=== PATIENT | female | born 1995 | race Caucasian/White ===

== ENCOUNTER 2018-06-22 10:43 | Emergency (ER) | payer OTHER ==
[~2018-06-22] VITALS: Ht 157.5 cm; Wt 61.2 kg
[2018-06-22] MEDS ORDERED: PHENAZOPYRIDINE HCL 100 MG TABLET PO ONE (11:00)
[2018-06-22] MEDS ORDERED: PHENAZOPYRIDINE HCL 100 MG TABLET ONE (11:03)
[2018-06-22 11:15] LABS: *BILIRUBIN,URIN NEGATIVE (NEGATIVE); *BLOOD, URINE 3+ (NEGATIVE); *CLARITY,URINE CLOUDY (CLEAR); *COLOR,URINE YELLOW (YELLOW); *KETONES,URINE NEGATIVE (NEGATIVE); *PROTEIN,URINE 2+ (NEGATIVE); *UROBILINOGEN,URINE 0.2 E.U./dl (NORMAL); LEUKOCYTE ESTERASE ,URINE 2+ (NEGATIVE); NITRITE, URINE NEGATIVE (NEGATIVE); PH,URINE 6.5 (5.0-8.0); UGLUCOSE NEGATIVE (NEGATIVE)
[2018-06-22 11:16] LABS: *URINE HCG, QUAL NEGATIVE (NEGATIVE)
[2018-06-22 11:18] LABS: BACTERIA,URINE FEW /HPF (NONE SEEN); SQUAMOUS EPITHELIAL CELL,UR FEW /HPF (NONE SEEN); WBC,URINE TNTC /HPF (0-3)
--- NOTE | 2018-06-22 11:29 | NUR ---
Patient discharged to home in stable conditon. Written and verbal after care instructions given. Patient verbalizes understanding of instructions. rx x! given
[2018-06-22 11:30] VITALS: BP 108/66
== END 2018-06-22 11:25 | disposition home or self-care (01) ==
LOC: ER 10:43
DX: N39.0 Urinary tract infection, site not specified (principal); J45.909 Unspecified asthma, uncomplicated; F17.200 Nicotine dependence, unspecified, uncomplicated
CPT/HCPCS: 81001; 84703; 87086; 99284; A4663

== ENCOUNTER 2018-07-03 09:19 | Emergency (ER) | payer OTHER ==
[~2018-07-03] VITALS: Ht 165.1 cm; Wt 59.0 kg
--- NOTE | 2018-07-03 09:20 | NUR ---
PATIENT BROUGHT IN THE ROOM. COLLECTED URINE. PATIENT C/O OF PAINFUL URINATION ALREADY TOOK TREATMENT WITH NO CHANGES.
--- NOTE | 2018-07-03 09:35 | NUR ---
OBTAIN URINE SPECIMEN AND TAKEN TO LAB
[2018-07-03 09:56] LABS: *BILIRUBIN,URIN NEGATIVE (NEGATIVE); *BLOOD, URINE NEGATIVE (NEGATIVE); *CLARITY,URINE CLEAR (CLEAR); *COLOR,URINE YELLOW (YELLOW); *KETONES,URINE NEGATIVE (NEGATIVE); *PROTEIN,URINE NEGATIVE (NEGATIVE); *UROBILINOGEN,URINE 0.2 E.U./dl (NORMAL); LEUKOCYTE ESTERASE ,URINE TRACE (NEGATIVE); NITRITE, URINE NEGATIVE (NEGATIVE); UGLUCOSE NEGATIVE (NEGATIVE)
[2018-07-03 09:58] LABS: BACTERIA,URINE FEW /HPF (NONE SEEN); SQUAMOUS EPITHELIAL CELL,UR MODERATE /HPF (NONE SEEN)
--- NOTE | 2018-07-03 10:25 | NUR ---
DR GAMBINO IN THE ROOM TO SEE PATIENT.
--- NOTE | 2018-07-03 10:38 | NUR ---
GIVEN PATIENT PRESCRIPTIONS AND DISCHARGE PAPERWORK.
== END 2018-07-03 10:41 | disposition home or self-care (01) ==
LOC: ER 09:19
DX: N39.0 Urinary tract infection, site not specified (principal); J45.909 Unspecified asthma, uncomplicated; F17.200 Nicotine dependence, unspecified, uncomplicated
CPT/HCPCS: 87077; 87086; A4663

== ENCOUNTER 2018-07-08 17:40 | Emergency (ER) | payer OTHER ==
[~2018-07-08] VITALS: Ht 165.1 cm; Wt 59.0 kg
[2018-07-08 18:11] LABS: *BILIRUBIN,URIN NEGATIVE (NEGATIVE); *BLOOD, URINE 3+ (NEGATIVE); *CLARITY,URINE CLOUDY (CLEAR); *COLOR,URINE YELLOW (YELLOW); *KETONES,URINE NEGATIVE (NEGATIVE); *PROTEIN,URINE 3+ (NEGATIVE); *URINE HCG, QUAL NEGATIVE (NEGATIVE); *UROBILINOGEN,URINE 0.2 E.U./dl (NORMAL); LEUKOCYTE ESTERASE ,URINE 2+ (NEGATIVE); NITRITE, URINE NEGATIVE (NEGATIVE); UGLUCOSE NEGATIVE (NEGATIVE)
[2018-07-08 18:39] LABS: RBC,URINE TNTC /HPF (0-3)
[2018-07-08 18:40] LABS: BACTERIA,URINE MODERATE /HPF (NONE SEEN); SQUAMOUS EPITHELIAL CELL,UR FEW /HPF (NONE SEEN); WBC,URINE TNTC /HPF (0-3)
[2018-07-08] MEDS ORDERED: PHENAZOPYRIDINE HCL 100 MG TABLET PO ONE (19:00)
[2018-07-08] MEDS ORDERED: CIPROFLOXACIN HCL 250 MG TABLET PO ONE (19:00)
[2018-07-08] MEDS ORDERED: PHENAZOPYRIDINE HCL 100 MG TABLET ONE (19:12)
[2018-07-08] MEDS ORDERED: CIPROFLOXACIN HCL 250 MG TABLET ONE (19:12)
[2018-07-08 19:20] VITALS: BP 111/77
--- NOTE | 2018-07-08 19:20 | NUR ---
Patient discharged to home in stable conditon. Written and verbal after care instructions given. Patient verbalizes understanding of instructions.
== END 2018-07-08 19:21 | disposition home or self-care (01) ==
LOC: ER 17:41
DX: N39.0 Urinary tract infection, site not specified (principal); J45.909 Unspecified asthma, uncomplicated; F17.200 Nicotine dependence, unspecified, uncomplicated
CPT/HCPCS: 84703; 87077; 87086; A4663

== ENCOUNTER 2018-08-11 16:43 | Emergency (ER) | payer OTHER ==
[~2018-08-11] VITALS: Ht 157.5 cm; Wt 47.6 kg
[2018-08-11 17:35] LABS: *BILIRUBIN,URIN NEGATIVE (NEGATIVE); *BLOOD, URINE 3+ (NEGATIVE); *CLARITY,URINE CLOUDY (CLEAR); *COLOR,URINE YELLOW (YELLOW); *KETONES,URINE NEGATIVE (NEGATIVE); *PROTEIN,URINE 2+ (NEGATIVE); *UROBILINOGEN,URINE 0.2 E.U./dl (NORMAL); LEUKOCYTE ESTERASE ,URINE 2+ (NEGATIVE); NITRITE, URINE NEGATIVE (NEGATIVE); PH,URINE 6.5 (5.0-8.0); UGLUCOSE NEGATIVE (NEGATIVE)
[2018-08-11 17:36] LABS: *URINE HCG, QUAL NEGATIVE (NEGATIVE)
[2018-08-11 17:48] LABS: BACTERIA,URINE MODERATE /HPF (NONE SEEN); RBC,URINE 80-100 /HPF (0-3); SQUAMOUS EPITHELIAL CELL,UR MODERATE /HPF (NONE SEEN); WBC,URINE TNTC /HPF (0-3)
[2018-08-11] MEDS ORDERED: PHENAZOPYRIDINE HCL 100 MG TABLET ONE (17:59)
[2018-08-11] MEDS ORDERED: CEPHALEXIN MONOHYDRATE 500 MG CAPSULE ONE (17:59)
[2018-08-11] MEDS ORDERED: PHENAZOPYRIDINE HCL 100 MG TABLET PO ONE (18:00)
[2018-08-11] MEDS ORDERED: CEPHALEXIN MONOHYDRATE 500 MG CAPSULE PO ONE (18:00)
[2018-08-11] MEDS ORDERED: CIPROFLOXACIN HCL 250 MG TABLET ONE (18:03)
--- NOTE | 2018-08-11 18:12 | NUR ---
Patient discharged to home in stable conditon. Written and verbal after care instructions given. Patient verbalizes understanding of instructions.
[2018-08-11 18:13] VITALS: BP 109/72
[2018-08-11] MEDS ORDERED: CIPROFLOXACIN HCL 250 MG TABLET PO ONE (18:15)
== END 2018-08-11 18:15 | disposition home or self-care (01) ==
LOC: ER 16:45
DX: N39.0 Urinary tract infection, site not specified (principal); J45.909 Unspecified asthma, uncomplicated; F17.200 Nicotine dependence, unspecified, uncomplicated
CPT/HCPCS: 84703; 87086; A4663

== ENCOUNTER 2018-11-30 14:20 | Emergency (ER) | payer MEDICAID, OTHER ==
[~2018-11-30] VITALS: Ht 157.5 cm; Wt 61.2 kg
[2018-11-30 14:42] LABS: *BILIRUBIN,URIN 1+ (NEGATIVE); *BLOOD, URINE NEGATIVE (NEGATIVE); *CLARITY,URINE CLOUDY (CLEAR); *KETONES,URINE TRACE (NEGATIVE); *UROBILINOGEN,URINE 0.2 E.U./dl (NORMAL); LEUKOCYTE ESTERASE ,URINE 1+ (NEGATIVE); NITRITE, URINE NEGATIVE (NEGATIVE); UGLUCOSE NEGATIVE (NEGATIVE)
[2018-11-30 14:46] LABS: *URINE HCG, QUAL NEGATIVE (NEGATIVE)
--- NOTE | 2018-11-30 14:47 | NUR ---
URINE SAMPLE SENT TO LAB....
[2018-11-30 14:49] LABS: *COLOR,URINE DARK YELLOW (YELLOW)
[2018-11-30 14:51] LABS: BACTERIA,URINE FEW /HPF (NONE SEEN); WBC,URINE 80-100 /HPF (0-3)
[2018-11-30 14:52] LABS: MUCUS,URINE MANY /LPF (0-FEW); SQUAMOUS EPITHELIAL CELL,UR MODERATE /HPF (NONE SEEN)
[2018-11-30] MEDS ORDERED: SULFAMETH/TRIMETH 800/160 MG TABLET PO ONE (15:00)
[2018-11-30] MEDS ORDERED: SULFAMETH/TRIMETH 800/160 MG TABLET ONE (15:03)
--- NOTE | 2018-11-30 15:06 | NUR ---
DC, RX (INCLUDING PRECAUTIONS) GIVEN AND EXPLAINED TO PATIENT WHO STATES SHE UNDERSTANDS ALL INSTRUCTIONS.
== END 2018-11-30 15:07 | disposition home or self-care (01) ==
LOC: ER 14:20
DX: N39.0 Urinary tract infection, site not specified (principal); J45.909 Unspecified asthma, uncomplicated; F17.200 Nicotine dependence, unspecified, uncomplicated
CPT/HCPCS: 84703; A4663